=== PATIENT | male | born 1970 | race Caucasian/White ===

== ENCOUNTER 2020-01-29 03:06 | Emergency (ER) | payer SELFPAY ==
[2020-01-29 03:10] VITALS: BP 138/84; PULSE 66; RESP 18; TEMP 36.4; O2SAT 97; BMI 32.3
--- NOTE | 2020-01-29 03:16 | XRR_ITS ---
PROCEDURE INFORMATION: Exam: XR Lumbosacral Spine, 2 or 3 Views Exam date and time: 01/29/2020 3:51 AM Age: 49 years old Clinical indication: Patient HX: C/O chronic low back pain TECHNIQUE: Imaging protocol: XR of the lumbosacral spine, 3 views. Other technique: AP, lateral and spot lateral views of the lumbar spine are submitted. COMPARISON: No relevant prior studies available. FINDINGS: Vertebrae: Mild-moderate chronic appearing T12 and L1 vertebral body compression deformities. Mild leftward lumbar spinal curvature. T12-L1, L1-L2, L2-L3 and right L3-L4 vertebral body marginal osteophytes. Right L3-L4 degenerative disc narrowing. Sacrum/coccyx: Bilateral anterior inferior sacroiliac joint marginal sclerosis. Soft tissues: Unremarkable. XR/XR lumbar spine 2-3V* [id number] IMPRESSION: 1. Mild-moderate chronic appearing T12 and L1 vertebral body compression deformities. 2. Degenerative changes as above. 3. No acute lumbar spinal bony abnormality identified.
--- NOTE | 2020-01-29 03:16 | XRR_ITS ---
PROCEDURE INFORMATION: Exam: XR Thoracic Spine, 3 Views Exam date and time: 01/29/2020 3:51 AM Age: 49 years old Clinical indication: Pain in thoracic spine; Without myelpathy or radiculopathy; Patient HX: C/O chronic back pain TECHNIQUE: Imaging protocol: XR of the thoracic spine, 3 views. Other technique: AP and lateral views and a swimmer's lateral view of the thoracic spine are submitted. COMPARISON: No relevant prior studies available. FINDINGS: Vertebrae: Mild leftward thoracolumbar spinal curvature. Mild chronic appearing T12 vertebral body compression deformity. Right lateral vertebral body marginal osteophytes are noted at lower thoracic spinal levels. Soft tissues: Unremarkable. XR/XR thoracic spine 3V* [id number] IMPRESSION: 1. Mild chronic appearing T12 vertebral body compression deformity. 2. Degenerative changes as above. 3. No acute thoracic spinal bony abnormality identified.
--- NOTE | 2020-01-29 03:17 | W.ED.BACK ---
HPI - Back Pain/Injury General: Chief Complaint: Back Pain/Injury Stated Complaint: back pain Time Seen by Provider: 01/29/20 03:08 Source: patient Mode of arrival: ambulatory Limitations: no limitations History of Present Illness: HPI Narrative: 49-year-old male who states he has a history of back pain in the past after compression fractures from a fall roughly 15 to 20 years ago. States he started having pain again in his mid back on has had intermittent pain since then. He states he started having pain again tonight sharp in nature. He denies any bowel or bladder incontinence. Denies any pain shooting down his leg or numbness in his legs. He states his pain is currently a 7 out of 10. MD elicited complaint: back pain Pertinent past history: prior back pain Onset (ago): day(s) Timing: intermittent Severity: moderate Quality: sharp Location: lumbar spine and thoracic spine Radiation: none Exacerbating factors: movement Relieving factors: immobilization Associated symptoms: Deny abdominal pain, chills, dysuria, fever(s), nausea or vomiting Review of Systems Const: Denies: fever(s), chills, body aches or change in appetite Eyes: Denies: blurry vision or eye discomfort ENMT: Denies: throat pain or dental pain Card: Denies: chest pain Resp: Denies: dyspnea GI: Denies: abdominal pain, nausea, vomiting or diarrhea : Denies: dysuria Musc: Reports: back pain Skin/Breast: Denies: rash Neuro: Denies: headache(s) Psych: Denies: depression Kana/Lymph: Denies: easy bruising All/Imm: Denies: urticaria Physical Exam Const: COMMON NORMALS: no acute distress, patient oriented x3 and healthy appearing HENMT: COMMON NORMALS: normocephalic and atraumatic HEAD & SCALP: normocephalic and atraumatic Eye: COMMON NORMALS: Equal, round and reactive pupils present and EOMs intact bilaterally PUPIL: Yes Equal, round and reactive pupils present Neck/C-Spine: COMMON NORMALS: full ROM and supple Chest: COMMONS NORMALS: normal inspection of the chest and normal palpation of entire chest wall Resp: COMMON NORMALS: normal respiratory effort, No retractions, No use of accessory muscles and clear to auscultation bilaterally AUSCULTATION: clear to auscultation bilaterally Cardio: COMMON NORMALS: regular rate, regular rhythm and No murmurs present (Cardio) RATE: regular rate RHYTHM: regular rhythm GI: COMMON NORMALS: Normal to inspection, nondistended, normoactive bowel sounds present, Soft to palpation, non-tender and no masses PALPATION: Yes Soft to palpation Back/Pelvis: OTHER: Tenderness along mid spine paraspinally. No midline tenderness. No saddle anesthesia. No lower extremity weakness. Extremity: COMMON NORMALS: normal to inspection and full ROM Neuro: COMMON NORMALS: patient oriented x3, moves all extremities and no focal motor deficits Psych: COMMON NORMALS: mental status grossly normal, Normal thought process present and cooperative THOUGHT PROCESS: Normal thought process present Skin: COMMON NORMALS: no rashes or lesions noted and no wounds GENERAL SKIN EXAM: no rashes or lesions noted Course Vital Signs: Vital signs: Vital Signs Temperature 97.6 F 01/29/20 03:10 Pulse Rate 59 L 01/29/20 03:25 Respiratory Rate 18 01/29/20 03:25 Blood Pressure 138/84 01/29/20 03:25 Pulse Oximetry 98 01/29/20 03:25 MDM - Back Pain/Injury MDM Narrative: Medical decision making narrative: Patient presents with back pain is likely muscular in nature. X-ray shows no acute findings. Is no signs of epidural abscess or cord compression. We will place him on pain meds and he is to follow-up his primary care doctor in 3 to 5 days and return to the ER if worsening. Patient understands agrees to plan. Imaging Data^: X-ray lumbar spine: Attestation: I personally reviewed and interpreted this imaging study as follows: My impression: Compression fractures that are old is noted no acute injuries X-ray thoracic spine: My impression: No acute abnormality Discharge Plan Discharge Patient Disposition: Home Clinical Impression: Back pain Qualifiers: Back pain location: thoracic back pain Chronicity: chronic Back pain laterality: bilateral Qualified Code(s): M54.6 - Pain in thoracic spine Condition: Stable Prescriptions: New Robaxin-750 750 mg tablet 750 mg PO Q6H Qty: 30 RF: 0 Naprosyn 500 mg tablet 500 mg PO BID PRN (Reason: pain) Qty: 20 RF: 0 Discharge Orders: Discharge Order (Routine); Ordered 01/29/20 Ordered By: Martha Graves Discharge Diet: Advance as tolerated Discharge Activity: Resume usual activity Patient Instructions: Back Pain (ED) Coding Level of Care Code ED Product Control And Logistics Analyst for Joanieg Fwd Exam Comprehensive
[2020-01-29 03:22] VITALS: RESP 16; O2SAT 97
[2020-01-29] MEDS: morphine 4 mg/mL SDV 1 mL IM (03:22)
[2020-01-29 03:25] VITALS: BP 138/84; PULSE 59; RESP 18; O2SAT 98
[2020-01-29 04:24] VITALS: BP 126/80; PULSE 57; RESP 18; O2SAT 98
--- NOTE | 2020-01-29 15:03 | PC.SOCIAL ---
Called patient to inquire if he has a preference for primary care and was unable to reach or leave message on his primary number. Called wifes number and was unable to reach her as well. Left message on 's phone.
--- NOTE | 2020-01-29 15:52 | PC.SOCIAL ---
returned call and spoke with patient. He did not have a preference of pcp. Called [facility] and set up for SS option for 02/05/2020 arrival time of 9am to fill out paperwork. Pt will see Alin CHATTERJEE. Called and updated patient of all information and that he will need to bring 2019 taxes info if filed and if not proof of all income within the home. Updated patient that bottom scale fee for income is around $35 and goes up from there. He verbalized understanding and wrote down information. Faxed records to [facility] for follow up per their request.
--- NOTE | 2020-02-06 15:23 | DCPLANNER ---
Patient did not attend appointment scheduled for 02.05.20 at [facility].
== END 2020-01-29 04:24 | disposition home or self-care (01) ==
PROVIDERS: Emergency Provider Emergency Medicine
DX: G89.29 Other chronic pain (principal); M54.6 Pain in thoracic spine
CPT/HCPCS: 12345; 72072; 72100; 96372; 99281; 99283; J2270

== ENCOUNTER 2021-06-04 18:43 | Inpatient (IN) | payer SELFPAY ==
[2021-06-04 18:52] VITALS: BP 129/80; PULSE 94; RESP 16; TEMP 36.8; O2SAT 98
--- NOTE | 2021-06-04 19:13 | W.ED.PSYCHS ---
Documented by User: ISMAEL Bush 06/05/21 02:17 HPI - Psych General: Chief Complaint: Psychiatric Symptoms Stated Complaint: Psychiatry Symptons Time Seen by Provider: 06/04/21 18:59 History of Present Illness: HPI Narrative: Patient is a 51-year-old male comes to the ED with SI. Patient says he used meth yesterday and since then is having thoughts of suicide. Patient also admits that he is currently freaking out from his methamphetamine use. He says he recently started using meth. He would like to get help. Denies any past SI, plan for SI. Associated symptoms: Reports suicidal ideation Review of Systems Const: Denies: fever(s), chills or fatigue Eyes: Denies: change in vision or eye discomfort ENMT: Denies: throat pain, odynophagia, nasal discharge or nasal congestion Card: Denies: chest pain, palpitations, edema, swelling of feet/ankles, dyspnea on exertion or orthopnea Resp: Denies: dyspnea, productive cough or non-productive cough GI: Denies: abdominal pain, nausea, vomiting, diarrhea, constipation or hematochezia : Denies: flank pain, difficulty urinating, dysuria or hematuria Musc: Denies: neck pain, back pain or extremity swelling Skin/Breast: Denies: rash or new lesions Neuro: Denies: headache(s), numbness in extremities or weakness in extremities Psych: Reports: suicidal ideation and other (Methamphetamine use) [facility] ED PFSH: Medical History DOMENIC (generalized anxiety disorder) Social History Smoking and tobacco status: current every day smoker cigarettes Packs smoked per day: 1.5 Years cigarettes smoked: 25 Quit status (tobacco): not considering quitting Second hand smoke exposure: Yes Current gender identity: Male Physical Exam Const: COMMON NORMALS: no acute distress, patient oriented x3 and alert GENERAL APPEARANCE: cooperative and anxious HENMT: COMMON NORMALS: normocephalic HEAD & SCALP: normocephalic MOUTH: Normal oral and palatal mucosa present THROAT: posterior oropharynx normal and uvula midline Neck/C-Spine: COMMON NORMALS: supple GENERAL: Yes normal visual inspection Resp: COMMON NORMALS: normal respiratory effort, No retractions, No use of accessory muscles and clear to auscultation bilaterally AUSCULTATION: clear to auscultation bilaterally Cardio: COMMON NORMALS: regular rate, regular rhythm, S1 normal heart sound present, S2 normal heart sound present, No gallops present (Cardio), No clicks present (Cardio), No murmurs present (Cardio) and Peripheral pulses 2+ throughout RATE: regular rate RHYTHM: regular rhythm HEART SOUNDS: S1 normal heart sound present and S2 normal heart sound present PERIPHERAL PULSES: Peripheral pulses 2+ throughout GI: COMMON NORMALS: Normal to inspection, nondistended, normoactive bowel sounds present, Soft to palpation, non-tender and no masses PALPATION: Yes Soft to palpation : COMMON NORMALS: Yes no CVA tenderness BLADDER/KIDNEY EXAM: Yes no CVA tenderness Back/Pelvis: COMMON NORMALS: no CVA tenderness Extremity: COMMON NORMALS: normal to inspection Neuro: COMMON NORMALS: patient oriented x3 and moves all extremities SENSORIUM/ORIENTATION: Yes alert Psych: COMMON NORMALS: Normal thought process present and speech normal APPEARANCE: Yes grossly normal ATTITUDE: Yes calm ACTIVITY/MOTOR BEHAVIOR: Yes fidgeting, Yes hyperactivity and Yes Avoids eye contact (attititude/behavior) SPEECH: Yes normal speech MOOD & AFFECT: Yes anxious THOUGHT PROCESS: Normal thought process present ATTENTION/CONCENTRATION: Yes attention grossly intact and Yes concentration grossly intact MEMORY/COGNITION: Yes memory grossly intact and Yes cognition grossly intact INSIGHT: Fair insight present (Psych) JUDGEMENT: Fair judgement present (Psych) Skin: GENERAL SKIN EXAM: dry skin Course Consultations: Consultation #1: I contacted Dr. Parikh and told about patient case. He accepted admission of patient into the NPU Time: 21:42 Vital Signs: Vital signs: Vital Signs Temperature 97.8 F 06/08/21 06:41 Pulse Rate 74 06/08/21 06:41 Respiratory Rate 16 06/08/21 06:41 Blood Pressure 126/78 06/08/21 06:41 Pulse Oximetry 97 06/08/21 06:41 MDM - Psych MDM Narrative: Medical decision making narrative: Patient is a 51-year-old male who comes to the ED with SI. Patient also admits to recent methamphetamine use yesterday. All screening labs performed and patient urine drug screen was positive for amphetamines. Patient was given some Ativan while here in the ED to help with his anxiety. I contacted Dr. Parikh and told about patient case and he accepted admission into NPU. Dr. Higgins placed the admitting orders. Lab Data: Attestation: I reviewed the patient's lab results. Labs: Lab Results 06/04/21 06/04/21 06/04/21 19:20 19:20 21:35 WBC 10.3 10^3/uL H 10 ^3/uL (4.0-10.0) RBC 5.39 10^6/uL H 10 ^6/uL (4.1-5.3) Hgb 15.6 g/dL g/dL (11.7-16.6) Hct 45.0 % % (42.0-52.0) MCV 83.5 fl fl (80-94) MCH 28.9 pg pg (28.0-34.0) MCHC 34.7 g/dL g/dL (30.0-36.0) RDW 12.7 % % (12.1-15.1) Plt Count 300 10^3/cmm 10^3 /cmm (130-400) MPV 9.5 fL fL (7.4-10.4) Neut % (Auto) 58.1 % % Lymph % (Auto) 32.6 % % Grimes % (Auto) 5.8 % % Eos % (Auto) 2.7 % % Baso % (Auto) 0.6 % % Neut # (Auto) 5.98 10^3/uL 10^3 /uL (1.8-7.7) Lymph # (Auto) 3.4 10^3/uL 10^3/ uL (0.8-4.8) Grimes # (Auto) 0.6 10^3/uL 10^3/ uL (0.2-0.9) Eos # (Auto) 0.3 10^3/uL 10^3/ uL (0.0-0.8) Baso # (Auto) 0.1 10^3/uL 10^3/ uL (0.0-0.1) Nucleated RBC % (a uto) 0 % % Nucleated RBCs # 0.0 /100WBC /100W BC Sodium Potassium Chloride Carbon Dioxide Anion Gap BUN Creatinine GFR Calculation Glucose Calculated Osmolal ity Calcium Total Bilirubin AST ALT Alkaline Phosphata se Total Protein Albumin Globulin Urine Color Lynn (Yellow) Urine Appearance Clear (CLEAR) Urine pH 5 (5-7) Ur Specific Gravit y 1.025 (1.005-1.030) Urine Protein Trace (Negative) Urine Glucose (UA) Norm (Normal) Urine Ketones Negative (Negative) Urine Blood 3+ H (Negative) Urine Nitrate Negative (Negative) Urine Bilirubin Neg (Negative) Urine Urobilinogen 4 mg/dL H mg/dL (Negative) Ur Leukocyte Heidi ase Negative (Negative) Urine RBC 0-4 /hpf H /hpf (0-2) Urine WBC 0-4 /hpf H /hpf (0-5) Ur Squamous Epith Cells 5-10 /hpf H /hpf (0-5) Calcium Oxalate Cr ystal 5-10 /hpf H /hpf Amorphous Sediment Not Reportable Urine Bacteria 3+ /hpf H /hpf (NONE) Hyaline Casts 0-4 /lpf H /lpf Salicylates Urine Opiates Scre en Negative ng/mL ng /mL (Negative) Acetaminophen Ur Barbiturates Sc reen Negative ng/mL ng /mL (Negative) Ur Phencyclidine S crn Negative ng/mL ng /mL (Negative) Ur Amphetamines Sc reen Positive ng/mL H ng/mL (Negative) U Benzodiazepines Scrn Negative ng/mL ng /mL (Negative) Urine Cocaine Scre en Negative ng/mL ng /mL (Negative) U Marijuana (THC) Screen Negative ng/mL ng /mL (Negative) Ethyl Alcohol 06/04/21 21:35 WBC RBC Hgb Hct MCV MCH MCHC RDW Plt Count MPV Neut % (Auto) Lymph % (Auto) Grimes % (Auto) Eos % (Auto) Baso % (Auto) Neut # (Auto) Lymph # (Auto) Grimes # (Auto) Eos # (Auto) Baso # (Auto) Nucleated RBC % (a uto) Nucleated RBCs # Sodium 137 mmol/L mmol/L (136-145) Potassium 3.7 mmol/L mmol/L (3.5-5.1) Chloride 100 mmol/L mmol/L (98-107) Carbon Dioxide 25 mmol/L mmol/L (22-29) Anion Gap 15.7 (5-19) BUN 13 mg/dL mg/dL (6-20) Creatinine 0.7 mg/dL mg/dL (0.7-1.2) GFR Calculation 118.9 mL/min mL/m in (90-130) Glucose 103 mg/dL mg/dL (65-115) Calculated Osmolal ity 284 mOsm/kg L mOs m/kg (285-295) Calcium 8.7 mg/dL mg/dL (8.5-10.5) Total Bilirubin 0.6 mg/dL mg/dL (0.15-1.2) AST 20 U/L U/L (0-40) ALT 19 U/L U/L (0-41) Alkaline Phosphata se 64 IU/L IU/L (40-130) Total Protein 6.7 g/dL g/dL (6.6-8.7) Albumin 4.2 g/dL g/dL (3.5-5.2) Globulin 2.5 g/dL g/dL (1.3-4.6) Urine Color Urine Appearance Urine pH Ur Specific Gravit y Urine Protein Urine Glucose (UA) Urine Ketones Urine Blood Urine Nitrate Urine Bilirubin Urine Urobilinogen Ur Leukocyte Heidi ase Urine RBC Urine WBC Ur Squamous Epith Cells Calcium Oxalate Cr ystal Amorphous Sediment Urine Bacteria Hyaline Casts Salicylates < 0.3 mg/dL L mg/ dL (3-10) Urine Opiates Scre en Acetaminophen < 5.0 ug/mL L ug/ mL (10-30) Ur Barbiturates Sc reen Ur Phencyclidine S crn Ur Amphetamines Sc reen U Benzodiazepines Scrn Urine Cocaine Scre en U Marijuana (THC) Screen Ethyl Alcohol < 10 mg/dL mg/dL (0-10) Discharge Plan Discharge Admit Provider: Rogelio Parikh Clinical Impression: Suicidal ideation, Methamphetamine abuse Condition: Stable Discharge Orders: Discharge Order (Routine); Ordered 06/08/21 Ordered By: Rogelio Parikh Discharge Diet: Regular Discharge Activity: Resume usual activity Coding Level of Care Code ED Record Press Operator for Chg Fwd Exam Comprehensive Documented by User: Tony Higgins MD 06/10/21 23:58 HPI - Psych General: Chief Complaint: Psychiatric Symptoms Stated Complaint: Psychiatry Symptons Time Seen by Provider: 06/04/21 18:59 PFSH ED PFSH: Medical History DOMENIC (generalized anxiety disorder) Social History Smoking and tobacco status: current every day smoker cigarettes Packs smoked per day: 1.5 Years cigarettes smoked: 25 Quit status (tobacco): not considering quitting Second hand smoke exposure: Yes Current gender identity: Male Course Vital Signs: Vital signs: Vital Signs Temperature 97.8 F 06/08/21 06:41 Pulse Rate 74 06/08/21 06:41 Respiratory Rate 16 06/08/21 06:41 Blood Pressure 126/78 06/08/21 06:41 Pulse Oximetry 97 06/08/21 06:41 MDM - Psych MDM Narrative: Medical decision making narrative: I discussed this case with ISMAEL Bush. I reviewed documentation. Tony Higgins MD Emergency Medicine Lab Data: Labs: Lab Results 06/04/21 06/04/21 06/04/21 19:20 19:20 21:35 WBC 10.3 10^3/uL H 10 ^3/uL (4.0-10.0) RBC 5.39 10^6/uL H 10 ^6/uL (4.1-5.3) Hgb 15.6 g/dL g/dL (11.7-16.6) Hct 45.0 % % (42.0-52.0) MCV 83.5 fl fl (80-94) MCH 28.9 pg pg (28.0-34.0) MCHC 34.7 g/dL g/dL (30.0-36.0) RDW 12.7 % % (12.1-15.1) Plt Count 300 10^3/cmm 10^3 /cmm (130-400) MPV 9.5 fL fL (7.4-10.4) Neut % (Auto) 58.1 % % Lymph % (Auto) 32.6 % % Grimes % (Auto) 5.8 % % Eos % (Auto) 2.7 % % Baso % (Auto) 0.6 % % Neut # (Auto) 5.98 10^3/uL 10^3 /uL (1.8-7.7) Lymph # (Auto) 3.4 10^3/uL 10^3/ uL (0.8-4.8) Grimes # (Auto) 0.6 10^3/uL 10^3/ uL (0.2-0.9) Eos # (Auto) 0.3 10^3/uL 10^3/ uL (0.0-0.8) Baso # (Auto) 0.1 10^3/uL 10^3/ uL (0.0-0.1) Nucleated RBC % (a uto) 0 % % Nucleated RBCs # 0.0 /100WBC /100W BC Sodium Potassium Chloride Carbon Dioxide Anion Gap BUN Creatinine GFR Calculation Glucose Calculated Osmolal ity Calcium Total Bilirubin AST ALT Alkaline Phosphata se Total Protein Albumin Globulin Urine Color Lynn (Yellow) Urine Appearance Clear (CLEAR) Urine pH 5 (5-7) Ur Specific Gravit y 1.025 (1.005-1.030) Urine Protein Trace (Negative) Urine Glucose (UA) Norm (Normal) Urine Ketones Negative (Negative) Urine Blood 3+ H (Negative) Urine Nitrate Negative (Negative) Urine Bilirubin Neg (Negative) Urine Urobilinogen 4 mg/dL H mg/dL (Negative) Ur Leukocyte Heidi ase Negative (Negative) Urine RBC 0-4 /hpf H /hpf (0-2) Urine WBC 0-4 /hpf H /hpf (0-5) Ur Squamous Epith Cells 5-10 /hpf H /hpf (0-5) Calcium Oxalate Cr ystal 5-10 /hpf H /hpf Amorphous Sediment Not Reportable Urine Bacteria 3+ /hpf H /hpf (NONE) Hyaline Casts 0-4 /lpf H /lpf Salicylates Urine Opiates Scre en Negative ng/mL ng /mL (Negative) Acetaminophen Ur Barbiturates Sc reen Negative ng/mL ng /mL (Negative) Ur Phencyclidine S crn Negative ng/mL ng /mL (Negative) Ur Amphetamines Sc reen Positive ng/mL H ng/mL (Negative) U Benzodiazepines Scrn Negative ng/mL ng /mL (Negative) Urine Cocaine Scre en Negative ng/mL ng /mL (Negative) U Marijuana (THC) Screen Negative ng/mL ng /mL (Negative) Ethyl Alcohol 06/04/21 21:35 WBC RBC Hgb Hct MCV MCH MCHC RDW Plt Count MPV Neut % (Auto) Lymph % (Auto) Grimes % (Auto) Eos % (Auto) Baso % (Auto) Neut # (Auto) Lymph # (Auto) Grimes # (Auto) Eos # (Auto) Baso # (Auto) Nucleated RBC % (a uto) Nucleated RBCs # Sodium 137 mmol/L mmol/L (136-145) Potassium 3.7 mmol/L mmol/L (3.5-5.1) Chloride 100 mmol/L mmol/L (98-107) Carbon Dioxide 25 mmol/L mmol/L (22-29) Anion Gap 15.7 (5-19) BUN 13 mg/dL mg/dL (6-20) Creatinine 0.7 mg/dL mg/dL (0.7-1.2) GFR Calculation 118.9 mL/min mL/m in (90-130) Glucose 103 mg/dL mg/dL (65-115) Calculated Osmolal ity 284 mOsm/kg L mOs m/kg (285-295) Calcium 8.7 mg/dL mg/dL (8.5-10.5) Total Bilirubin 0.6 mg/dL mg/dL (0.15-1.2) AST 20 U/L U/L (0-40) ALT 19 U/L U/L (0-41) Alkaline Phosphata se 64 IU/L IU/L (40-130) Total Protein 6.7 g/dL g/dL (6.6-8.7) Albumin 4.2 g/dL g/dL (3.5-5.2) Globulin 2.5 g/dL g/dL (1.3-4.6) Urine Color Urine Appearance Urine pH Ur Specific Gravit y Urine Protein Urine Glucose (UA) Urine Ketones Urine Blood Urine Nitrate Urine Bilirubin Urine Urobilinogen Ur Leukocyte Heidi ase Urine RBC Urine WBC Ur Squamous Epith Cells Calcium Oxalate Cr ystal Amorphous Sediment Urine Bacteria Hyaline Casts Salicylates < 0.3 mg/dL L mg/ dL (3-10) Urine Opiates Scre en Acetaminophen < 5.0 ug/mL L ug/ mL (10-30) Ur Barbiturates Sc reen Ur Phencyclidine S crn Ur Amphetamines Sc reen U Benzodiazepines Scrn Urine Cocaine Scre en U Marijuana (THC) Screen Ethyl Alcohol < 10 mg/dL mg/dL (0-10) Discharge Plan Discharge Admit Provider: Rogelio Parikh Clinical Impression: Suicidal ideation, Methamphetamine abuse Condition: Stable Discharge Orders: Discharge Order (Routine); Ordered 06/08/21 Ordered By: Rogelio Parikh Discharge Diet: Regular Discharge Activity: Resume usual activity Coding Level of Care Code ED Record Press Operator for Chg Fwd Exam Comprehensive
[2021-06-04] MEDS: LORazepam 2 mg Tablet PO (20:28)
[2021-06-04 20:41] LABS: Add Urine Culture? No; Add Urine Microscopic? YES; Bacteria Urine 3+ /hpf; Bilirubin Urine Neg (Negative); Blood Urine 3+ (Negative); Glucose Urine UA Norm (Normal); Hyaline Casts Urine 0-4 /lpf; Ketones Urine Negative (Negative); Leukocyte Esterase Urine Negative (Negative); Nitrate Urine Negative (Negative); Protein Urine Trace (Negative); RBC Urine 0-4 /hpf (0-2); Specific Gravity, Urine 1.025 (1.005-1.030); Urine Appearance Clear (CLEAR); Urine Color Amber (Yellow); Urobilinogen Urine 4 mg/dL (Negative); WBC Urine 0-4 /hpf (0-5); pH Urine 5 (5-7)
[2021-06-04 20:42] LABS: Amphetamines Screen Urine Positive (Negative); Barbiturates Screen Urine Negative (Negative); Benzodiazepines Screen Urine Negative (Negative); Cocaine Screen Urine Negative (Negative); Opiate Screen Urine Negative (Negative); PCP Screen Urine Negative (Negative); THC Screen Urine Negative (Negative)
[2021-06-04 21:45] LABS: Basophils # 0.1 10^3/uL (0.0-0.1); Basophils % 0.6 %; Eosinophils # 0.3 10^3/uL (0.0-0.8); Eosinophils % 2.7 %; Hemoglobin 15.6 g/dL (11.7-16.6); Lymphocytes # 3.4 10^3/uL (0.8-4.8); Lymphocytes % 32.6 %; Mean Corpuscular HGB Conc 34.7 g/dL (30.0-36.0); Mean Corpuscular Hemoglobin 28.9 pg (28.0-34.0); Mean Corpuscular Volume 83.5 fl (80-94); Mean Platelet Volume 9.5 fL (7.4-10.4); Monocytes # 0.6 10^3/uL (0.2-0.9); Monocytes % 5.8 %; Neutrophils # 5.98 10^3/uL (1.8-7.7); Neutrophils % 58.1 %; Nucleated Red Blood Cells % 0 %; Platelet Count 300 10^3/cmm (130-400); Red Blood Count 5.39 10^6/uL (4.1-5.3); Red Cell Distribution Width 12.7 % (12.1-15.1); White Blood Count 10.3 10^3/uL (4.0-10.0)
[2021-06-04 22:00] VITALS: BP 120/82; PULSE 82; RESP 18; TEMP 36.7; O2SAT 100
[2021-06-04 22:02] LABS: Alanine Aminotransferase 19 U/L (0-41); Albumin Level 4.2 g/dL (3.5-5.2); Alkaline Phosphatase 64 IU/L (40-130); Anion Gap 15.7 (5-19); Aspartate Amino Transferase 20 U/L (0-40); Blood Urea Nitrogen 13 mg/dL (6-20); Calcium 8.7 mg/dL (8.5-10.5); Carbon Dioxide 25 mmol/L (22-29); Chloride 100 mmol/L (98-107); Globulin 2.5 g/dL (1.3-4.6); Glomerular Filtration Rate 118.9 mL/min (90-130); Glucose 103 mg/dL (65-115); Osmolality Calculated 284 mOsm/kg (285-295); Potassium 3.7 mmol/L (3.5-5.1); Sodium 137 mmol/L (136-145); Total Bilirubin 0.6 mg/dL (0.15-1.2); Total Protein 6.7 g/dL (6.6-8.7)
[2021-06-04 22:03] LABS: Acetaminophen < 5.0 ug/mL (10-30); Alcohol Level < 10 mg/dL (0-10); Salicylate < 0.3 mg/dL (3-10)
[2021-06-04 23:45] VITALS: BP 122/69; PULSE 80; RESP 17; TEMP 36.8; O2SAT 98
--- NOTE | 2021-06-04 23:56 | PC.ADMIT ---
Homeless Admission Note: The patient,Tushar Becerra,51 y/o, was given written information regarding hospital policies, unit procedures and contact persons. Patient's smoking status: current every day smoker. Vital Signs - 8 hr 06/04/21 18:52 06/04/21 22:00 Temperature 98.3 F 98.1 F Pulse Rate 94 82 Respiratory Rate 16 18 Blood Pressure 129/80 120/82 Pulse Oximetry 98 100 Patient is a 51-year-old male comes to the ED with SI. Patient says he used meth yesterday and since then is having thoughts of suicide. Patient also admits that he is currently freaking out from his methamphetamine use. He says he recently started using meth. He would like to get help. Denies any past SI, plan for SI. Associated symptoms: Reports suicidal ideation Upon arrival to NPU patient is slumped over on bench and unable to answer questions appropriately. Patient taken to his room and skin assessment performed with RODRIGUEZ Easton. Skin unremarkable. Patient assisted into cotton scrubs and placed in bed. Patient unable to keep his eyes open or answer questions for assessment. Will attempt again once patient is alert/oriented. Will continue to monitor and follow plan of care. Q 15 min safety checks per protocol.
[2021-06-05 06:00] VITALS: BP 122/69; PULSE 80; RESP 17; TEMP 36.8
[2021-06-05 06:46] VITALS: RESP 15
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
[2021-06-05 14:00] VITALS: BP 121/71; PULSE 84; RESP 17; TEMP 37.1; O2SAT 98
[2021-06-05 22:00] VITALS: BP 113/77; PULSE 67; RESP 16; TEMP 37.1; O2SAT 99
[2021-06-06] MEDS: ibuprofen 600 mg Tablet PO (03:58)
[2021-06-06 05:35] VITALS: BMI 26.6
[2021-06-06 06:00] VITALS: BP 120/78; PULSE 123; RESP 18; TEMP 36.8; O2SAT 99
[2021-06-06 14:00] VITALS: BP 117/75; PULSE 75; RESP 18; TEMP 36.3; O2SAT 98
--- NOTE | 2021-06-06 18:12 | W.PM.NPUPNS ---
Subjective NPU Subjective: Interval history: Patient presents today reporting he is doing a little bit better but still feels anxious and is managing his withdrawal okay. He reports that he is still depressed and has occasional thoughts of wishing he was but is mostly hopeful that treatment team will we will help find some sober living opportunities. He reports he still thinking about the naltrexone and BuSpar as far as medications. Mental Status Exam MSE Comments: This is a well-nourished well-developed white male with hospital scrubs on with limited grooming and eye contact appearing quite dirty. No abnormal movements except for psychomotor agitation. Mostly cooperative with exam in mild distress. Speech is slightly increased rate normal volume. Mood described as anxious affect congruent. Thought process organized. Thought content: Patient denied suicidal or homicidal ideation, there were no delusions reported or noted, denied visual hallucinations. Attention and concentration appeared intact and memory was most reliable but none were formally tested. He is alert and oriented x3. Insight and judgment are fair impulse control is impaired. Vitals/I&O/Wt Last Vital Signs Temp 97.4 F L 06/06/21 14:00 Pulse 77 06/06/21 20:04 Resp 16 06/06/21 20:04 BP 149/78 06/06/21 20:04 Pulse Ox 99 06/06/21 20:04 Weight last 48 hrs Weight 81.647 kg Data NPU : 06/04/21 21:35 06/04/21 21:35 A&P Additional A&P Information (1) Suicidal ideation: (2) Methamphetamine abuse: (3) DOMENIC (generalized anxiety disorder): Additional A&P Information This is a 51-year-old male with a history of anxiety and significant addiction who presents with active methamphetamine addiction anxiety and suicidal thinking presents open to getting help for his issues. 1. Continue current medication. We will reexplore BuSpar and naltrexone tomorrow. 2. Continue every 15 minute checks for safety. 3. Encourage individual, group and milieu therapies. 4. Encourage sober living treatment after discharge at the highest level of care to which he is willing to commit. Involuntary Hold Information 96 Hour Hold: 96 Hour Involuntary Admission: No Attestations NPU Medical Necessity Statement*: Inpatient hospitalization is medically necessary and the clinically appropriate intervention at this time. We will monitor medication to make changes as indicated. Likely length of stay 2-4 days. Coding Level of Care Code Acute Open Tenter Operator for Chg Fwd
[2021-06-06 20:04] VITALS: BP 149/78; PULSE 77; RESP 16; O2SAT 99
[2021-06-06] MEDS: trazodone 50 mg Tablet PO (20:32)
--- NOTE | 2021-06-06 20:35 | PC.NURSE ---
pt requested sleep med, Trazodone 50mg po given.
--- NOTE | 2021-06-06 22:00 | PC.NURSE ---
pt resting quietly with both eyes closed.
[2021-06-07 06:00] VITALS: BP 112/62; PULSE 92; RESP 17; O2SAT 98
--- NOTE | 2021-06-07 10:15 | PC.NURSE ---
Meds Patient declined 0900 nasal spray. States that he no longer needs this.
[2021-06-07 14:00] VITALS: BP 137/79; PULSE 92; RESP 16; TEMP 36.7; O2SAT 97
--- NOTE | 2021-06-07 17:39 | W.PM.NPUPNS ---
Subjective NPU Subjective: Interval history: Patient presents today reporting that he had an opportunity to work through the possibilities with the social workers and treatment team as to possible sober living opportunities. There were significant limitations but he turned in all of his paperwork for [facility]. There were a few other opportunities but he did not feel they were fixed because he was not ready to commit to 1 year. We discussed discharge in the morning. Mental Status Exam MSE Comments: This is a well-nourished well-developed white male with hospital scrubs on with improved grooming and eye contact. No abnormal movements. Cooperative with exam in no acute distress. Speech is more normal rate and volume. Mood described as better, affect congruent. Thought process organized. Thought content: Patient denied suicidal or homicidal ideation, there were no delusions reported or noted, denied visual hallucinations. Attention and concentration appeared intact and memory was most reliable but none were formally tested. He is alert and oriented x3. Insight and judgment are fair impulse control is limited. Vitals/I&O/Wt Last Vital Signs Temp 98.0 F 06/07/21 14:00 Pulse 92 06/07/21 14:00 Resp 18 06/07/21 21:39 BP 137/79 06/07/21 14:00 Pulse Ox 97 06/07/21 14:00 Data NPU : 06/04/21 21:35 06/04/21 21:35 A&P Additional A&P Information (1) Suicidal ideation: (2) Methamphetamine abuse: (3) DOMENIC (generalized anxiety disorder): Additional A&P Information This is a 51-year-old male with a history of anxiety and significant addiction who presents with active methamphetamine addiction anxiety and suicidal thinking presents open to getting help for his issues. 1. Continue current medication. 2. Continue every 15 minute checks for safety. 3. Encourage individual, group and milieu therapies. 4. Encourage sober living treatment after discharge at the highest level of care to which he is willing to commit. Involuntary Hold Information 96 Hour Hold: 96 Hour Involuntary Admission: No Attestations NPU Medical Necessity Statement*: Inpatient hospitalization is medically necessary and the clinically appropriate intervention at this time. We will monitor medication to make changes as indicated. Plan for discharge in the morning. Coding Level of Care Code Acute Toggle Press Folder And Feeder for Ana Melgar
[2021-06-07 21:39] VITALS: RESP 18
--- NOTE | 2021-06-08 05:57 | W.PM.NPUDCS ---
Diagnoses at Discharge Discharge Diagnosis (1) Suicidal ideation: Status: Resolved (2) Methamphetamine abuse: Status: Acute (3) DOMENIC (generalized anxiety disorder): Status: Acute Reason for Visit Reason for Visit: Psychiatry Symptons Brief History: History of Present Illness Tushar Becerar is a 51 year old male who presented to the emergency department with the following report: Chief Complaint: Psychiatric Symptoms Stated Complaint: Psychiatry Symptons Time Seen by Provider: 06/04/21 18:59 History of Present Illness: HPI Narrative: Patient is a 51-year-old male comes to the ED with SI. Patient says he used meth yesterday and since then is having thoughts of suicide. Patient also admits that he is currently freaking out from his methamphetamine use. He says he recently started using meth. He would like to get help. Denies any past SI, plan for SI. Associated symptoms: Reports suicidal ideation. He was admitted to the neuropsychiatric unit for definitive treatment of those issues. He presents today reporting that he does not figure out how to get his sobriety under control he is going to end up . He denies any psychiatric inpatient services in the past or any purely outpatient mental health services. He reports he has struggled with anxiety and has had some mental health treatment through drug and alcohol treatment agencies. Like [facility] outpatient. Endorses letter about accident today, denies alcohol marijuana or any other illicit drugs except he has struggled with methamphetamine reports that he may have had some sobriety in December that was fleeting. This is there is been a real struggle for him to maintain sobriety. He is only had at 1 outpatient rehab denies ever having a DUI. He denies any history of suicide attempts or self-injurious behavior but he reports that his family is in agreement that he really needs help and he knows that if he does not do something he is not have anybody in his corner. We discussed the risk benefits and alternatives of a trial of BuSpar and naltrexone and he understood and said he wanted to think about it as he appeared quite ambivalent about starting medications. Psychiatric history: As above. Substance abuse history: As above. Family history: He did not report any mental health, addiction or suicide attempts or completions on either side of family. Developmental history: He denies any issues at reports he learned to walk and talk and met his developmental time, he reports he may have a speech therapy endorse getting some special education classes. Psychosocial history: Reports his parents were together he was born and he has a younger sister and older brother than a product of that union. Neither of his parents had any other children other than those 3. He reports his childhood was shitty he reports they moved around a lot. But he denied emotional, physical or sexual abuse. He denied any other traumas in his life. He reports that he mated to the 10th grade but never got his GED. He reports being a heterosexual with his longest relationship being 15 years. He was 3 times and twice, he had 3 children, is never in the and he denied any catholic belief system. Reports his longest employment was about 10 years. And he is currently homeless. Legal history: Reports that he has had some weekend prison times in his life. Medical history: Hypertension. Please see ED note for any additional details. Hospital Course Hospital Course He slowly acclimated to the individual, group and milieu therapies provided. We had discussions about medication interventions, but ultimately he was ambivalent about medications. He was somewhat ambivalent about treatment in general once he started feeling a little better but he did fill out paperwork for some sober living options. He had modest improvement and was able to contract for safety outside the hospital prior to discharge. During the hospitalization, patient had routine laboratory studies which were within normal limits except for few outliers. Additionally there was a general medical evaluation which was also within normal limits and revealed no new acute processes. Discharge Summary: At the time of discharge, he denied psychosis or lethality. Mood and anxiety were well managed. Patient endorsed a plan to avoid all drugs of abuse and follow-up with the aftercare recommendations of the treatment team. Patient was evaluated and deemed to be absent credible lethality, and had achieved the maximum benefit from an inpatient hospitalization, so was discharged. Involuntary Hold Information 96 Hour Hold: 96 Hour Involuntary Admission: No Mental Status Exam MSE Comments: This is a well-nourished well-developed white male with hospital scrubs on with improved grooming and eye contact. No abnormal movements. Cooperative with exam in no acute distress. Speech is more normal rate and volume. Mood described as better, affect congruent. Thought process organized. Thought content: Patient denied suicidal or homicidal ideation, there were no delusions reported or noted, denied visual hallucinations. Attention and concentration appeared intact and memory was most reliable but none were formally tested. He is alert and oriented x3. Insight and judgment are fair impulse control is limited. Discharge Data Vitals: Last Vital Signs Temp 98.0 F 06/07/21 14:00 Pulse 92 06/07/21 14:00 Resp 18 06/07/21 21:39 BP 137/79 06/07/21 14:00 Pulse Ox 97 06/07/21 14:00 Discharge Plan Discharge Patient Disposition: Home Condition: Stable Prescriptions: Continued No Known Home Medications RF: 0 Discharge Orders: Discharge Order (Routine); Ordered 06/08/21 Ordered By: Rogelio Parikh Discharge Diet: Regular Discharge Activity: Resume usual activity Patient Instructions: Generalized Anxiety Disorder, Methamphetamine Abuse (GEN), Suicide Prevention (GEN), Opioid Safety Discharge Attestations NPU Time Spent in Discharge Care*: less than 30 min Specific Discharge Activities: Specific discharge activities: educating patient, discussing with binder caser/social workers/dc planners, documenting/other paperwork and evaluating patient/reviewing data Coding Level of Care Code Acute Chg FW DC note Diagnoses Suicidal ideation R45.851 Methamphetamine abuse F15.10 DOMENIC (generalized anxiety disorder) F41.1
[2021-06-08 06:00] VITALS: RESP 16
[2021-06-08 06:41] VITALS: BP 126/78; PULSE 74; RESP 16; TEMP 36.6; O2SAT 97
== END 2021-06-08 10:20 | disposition home or self-care (01) | DRG 897 ==
LOC: ER 19:00 → NP 23:05
PROVIDERS: Admitting Provider Psychiatry & Neurology Psychiatry; Emergency Provider Physician Assistant; Visit Provider Psychiatry & Neurology Psychiatry
DX: F15.10 Other stimulant abuse, uncomplicated (principal); R45.851 Suicidal ideations; F41.1 Generalized anxiety disorder; F17.210 Nicotine dependence, cigarettes, uncomplicated; Z59.00 Homelessness unspecified; I10 Essential (primary) hypertension
CPT/HCPCS: 36415; 80053; 80306; 80307; 81001; 85025; 97165; 99285

== ENCOUNTER 2025-02-24 21:25 | Emergency (ER) | payer MEDICAID, SELFPAY ==
--- OUTSIDE RECORDS SUMMARY | 2011-09-28 19:00 | XMS_ITS | Continuity of Care Document ---
Author Organization [facility] Address [address] [place] [address] Phone Care Team Providers Care Rug Repairer Name Role Phone Art Miranda MD, MD Unavailable Unavailable Medications Medication Instructions Dosage Effective Dates (start - stop) Status Comments [place] 5 mg-325 mg Tab take 1 - 2 by Oral route q 4-6 hr prn 1-2 - Active Procedures Procedure Date Rating Letter Office/outpatient visit,est, mod 2011 Supplemental Report Postop followup visit Supplemental Report Postop followup visit Supplemental Report Postop followup visit Supplemental Report Postop followup visit Supplemental Report Partial removal of shoulder bone 2010 Work/medical disability examination MARY Advance Directives Directive Yes / No Effective Date File Name No Information Encounters Encounter Description Practice Location Reason(s) For Visit Diagnoses Date Provider Providers Copied on Encounter Rating Letter [facility], [address] [place] [address], [id number], tel:[phone] [facility] No Information 2 Ruben Cordova. [address] [place] [address], [place] [address], [place], [place], [id number] , [place]. tel: [phone] Office/outpat ient visit,est, mod [facility], [address] [place] [address], [id number], tel:[phone] [facility] JOINT PAIN-SHLDERJO INT DIS NEC-SHLDER 2 Ruben Cordova. [address], [place] [address], [place], [place], [id number] , [place]. tel:[phone] [facility], [address], [id number], [place] tel:[phone] [facility] JOINT PAIN-SHLDER 2 Ruben Cordova. [address], [place] [address], [place], [place], [id number] , [place]. tel: [phone] [facility], [address] [place] [address], [place], [place], [id number], [place] tel:[phone] [facility] JOINT PAIN-SHLDERSP RAIN SHOULDER/ARM NOSROTATOR CUFF DIS NEC 2 Ruben Cordova. [address] [place] [address], [place], [place], [id number] , [place]. tel: [phone] [facility], [address] [place] [address], [place], [place], [id number], [place] tel:[phone] [facility] No Information 2 Ruben Cordova. [address] [address], [place], [place], [id number] , [place]. tel: [phone] [facility], [address] [place] [address], [id number], [place] tel:[phone] [facility] JOINT PAIN-L/LEGJOI NT SYMPTOM NEC-SHLDER Jun- 1 Ruben Cordova. [address] [place] [address], [place], [place], [id number] , [place]. tel: [phone] [facility], [address], [id number], [place] tel:[phone] [facility] JOINT PAIN-SHLDERRO TATOR CUFF DIS NEC 1 Ruben Cordova. [address] [facility], [address], [place], [place], [id number] , [place]. tel: [phone] [facility], [address] [facility] [address], [place], [place], [id number], [place] [phone] [facility] [place] ARTIC CARTIL DIS-SHLDER 1 Ruben Cordova. [address], [address], [place], [place], [id number] , [place]. tel: [phone] Work/medical disability examination MARY [facility], [address] [facility] [address], [place], [place], [id number], [place] [phone] [facility] BICEPS TENDON [facility] DIS NEC 1 Ruben Cordova. [address], [address], [place], [place], [id number] , [place]. tel: [phone] Family History Family Member Type Diagnosis Age At Onset No Information Payers Payer name Insurance type Covered republican ID Cherie glynn(s) [employer] [id number] Social History Type Description Quantity Date Captured Comments Sex Male Smoking Status No Information Chief Complaint And Reason For Visit No Information Reason For Referral Reason For Referral No Information History Of Present Illness Encounter Date Complaint History Of Prese nt Illness No Information Functional Status Date Functional Assessmen t No Information Instructions Date Instruction Additional Infor mation No Information Assessments Type Assessment Date No Information Patient Care Teams Name Effective Dates (start - stop) Status Members No Information
[2025-02-24 21:25] VITALS: BP 144/84; PULSE 74; RESP 18; TEMP 36.6; O2SAT 95; BMI 31.4
--- NOTE | 2025-02-24 21:32 | ED.C_ITS ---
HPI - Psych General: Chief Complaint: Psychiatric Symptoms Stated Complaint: depression and stress Time Seen by Provider: 02/24/25 21:28 History of Present Illness: 54-year-old man with a history of depres yolande who presents the emergency room with depression and stress. He says he has been feeling worthless and he is tired of feeling that way. He was not sure what to do. We discussed at length options. He continually denies that he has suicidal thoughts and he agrees that he will go to the crisis unit tomorrow but if he develops suicidal thoughts he will return to the emergency room. Related Data Home Medications ?Medication ?Instructions ?Recorded ?Confirmed No Known Home Medications 06/04/21 1209/20 Allergies Allergy/AdvReac Type Severity Reaction Status Date / Time No Known Allergies Allergy Verified 02/14/20 13:13 Review of Systems Narrative: Constitutional symptoms: Negative except as documented in HPI. Skin symptoms: Negative except as documented in HPI. Eye symptoms: Negative except as documented in HPI. ENMT symptoms: Negative except as documented in HPI. Respiratory symptoms: Negative except as documented in HPI. Cardiovascular symptoms: Negative except as documented in HPI. Gastrointestinal symptoms: Negative except as documented in HPI. Genitourinary symptoms: Negative except as documented in HPI. Musculoskeletal symptoms: Negative except as documented in HPI. Neurologic symptoms: Negative except as documented in HPI. Psychiatric symptoms: Negative except as documented in HPI. Endocrine symptoms: Negative except as documented in HPI. [facility] ED PFSH: Medical History (Updated 02/24/25 @ 21:33 by Candis Gonzalez MD) DOMENIC (generalized anxiety disorder) Social History Smoking and tobacco/nicotine status: current every day tobacco/nicotine user cigarettes Packs smoked per day: 1.5 Years cigarettes smoked: 25 Quit status (tobacco/nicotine): not considering quitting Second hand smoke exposure: Yes Current gender identity: Male Physical Exam Narrative: EXAM NARRATIVE: General: Alert, no acute distress. Skin: Warm, dry. Head: Normocephalic, atraumatic. Neck: Supple, trachea midline. Eye: Extraocular movements are intact. Ears, nose, mouth and throat: mucosa moist. Cardiovascular: Regular, Normal peripheral perfusion. Respiratory: Lungs are clear to auscultation, respirations are non-labored, breath sounds are equal, Symmetrical chest wall expansion. Gastrointestinal: Soft, Nontender, Non distended Musculoskeletal: Normal ROM, no deformity. Neurological: Alert and oriented, No focal neurological deficit observed. Psychiatric: Cooperative, appropriate mood & affect. Course Vital Signs: Vital signs: Vital Signs Temperature 97.9 F 02/24/25 21:25 Pulse Rate 74 02/24/25 21:25 Respiratory Rate 18 02/24/25 21:25 Blood Pressure 144/84 02/24/25 21:25 Pulse Oximetry 95 02/24/25 21:25 Oxygen Delivery Me thod Room Air 02/24/25 21:25 MDM - Psych Medical Decision Making Medical decision making: Differential diagnosis including but not limited to and based on the above HPI, review of systems and physical exam: Patient currently denies any suicidal or homicidal thoughts. He is not actively psychotic. He poses no danger to himself or others. He agrees to go to the crisis center tomorrow for his worsening depression symptoms. Assessment and plan: Depression - Discharged home - Discussed plan with patient. Answered any questions. - Evaluation and treatment of this problem were appropriate in the emergency setting. No radiology studies performed this visit Discharge Plan Discharge Patient Disposition: Home Clinical Impression: Depression Condition: Stable Prescriptions: No Action No Known Home Medications Discharge Orders: Discharge ED (Routine); Ordered 02/24/25 Ordered By: Candis Gonzalez Referrals: Claudette Quintero FNP [Primary Care Provider, Family Practice] Discharge Diet: Usual diet Discharge Activity: Increase activity as tolerated Patient Instructions: Opioid Safety, Pain Management, Patient Portal & Abdulaziz Instructions Activity Restrictions/Additional Instructions: Please follow-up with the [facility] health crisis center tomorrow or the next day. Phone number is [phone]. There is a 24-hour crisis hotline with the number of [phone]. Hours of operation are 8 AM to 6 PM. Thank you for choosing [facility] for your healthcare needs today. Please realize this is an emergency room and that we are providing you with a medical screening exam and this may not be complete and all inclusive of all the testing and or work up that you may need to determine your ailment or severity of your illness. You have been screened and evaluated and felt safe for discharge. Health conditions do change or evolve sometimes and as such it is important that you follow up with your Primary Doctor to be re checked, 3-5 days is a general good time frame for follow up. You are always welcome to return to the ED for re assessment if your symptoms are worsening or you have new concerns Print Language: Kazakh Coding Level of Care Code ED Two Needle Machine Operator for Ana Melgar
--- OUTSIDE RECORDS SUMMARY | 2025-02-24 21:42 | XMS_ITS | Clinical Summary ---
Author Organization [facility] Address [address] [facility] [address] Johnson: Epic Prelude ADT ZHEN MERCADO [address] Care Team Providers Care Parts Assembler Name Role Phone Huber Chaves MD Primary Care Provider [phone] Allergies Active Allergy Reactions Criticality Noted Date Comments Duloxetine Hcl Swelling Low 01/16/2024 Mirtazapine Swelling Low 01/16/2024 Medications gabapentin (NEURONTIN) 600 mg tabletIndication s:Lumbosacral spondylosis with radiculopathy,Sp inal stenosis of lumbar region with neurogenic claudication Take 1 Tablet (600 mg) by mouth 3 times daily. Resuming prior Rx 90 Tablet 5 08/15/19 25 Active Ventolin HFA 90 mcg/actuation inhalerIndicatio ns:Acute bronchitis, unspecified organism INHALE 2 PUFFS BY MOUTH EVERY 6 HOURS NEEDED FOR SHORTNESS OF BREATH 18 Gram 2 09/14/19 25 Active ARIPiprazole (Abilify) 5 mg tablet Take 1 Tablet (5 mg) by mouth daily. Replaces seroquel 30 Tablet 5 01/14/20 25 Active loratadine (CLARITIN) 10 mg tablet Take 1 Tablet (10 mg) by mouth daily. 30 Tablet 1 01/15/20 25 Active fluticasone propionate (FLONASE) 50 mcg/spray [place], Suspension nasal inhaler Administer 2 Sprays in each nostril daily. 16 Gram 01/16/20 25 Active ibuprofen (MOTRIN) 800 mg tabletIndication s:Lumbar radiculopathy,SI (sacroiliac) joint inflammation TAKE 1 TABLET BY MOUTH EVERY 8 HOURS NEEDED FOR MILD PAIN 180 Tablet 02/05/20 25 Active ibuprofen (MOTRIN) 800 mg tabletIndication s:Lumbar radiculopathy,SI (sacroiliac) joint inflammation TAKE 1 TABLET BY MOUTH EVERY 8 HOURS NEEDED FOR MILD PAIN 180 Tablet 11/28/19 025 Discontinued cephALEXin (KEFLEX) 500 mg capsule Take 1 Capsule (500 mg) by mouth 4 times daily for 14 days. 56 Capsule 02/01/20 025 Active Problems Problem Noted Date Diagnosed Date Nasal septal deviation 02/06/2025 Closed fracture of right zygomatic arch 02/07/20 Chronic pansinusitis 02/06/2025 Lumbosacral spondylosis with radiculopathy 08/15 Spinal stenosis of lumbar re gion with neurogenic claudication 07/15/2024 Osteoarthritis of spine with radiculopathy, lumb ar region 07/15/2024 Auditory hallucinations 07/15/2024 Tobacco use 09/15/2015 Resolved Problems Problem Noted Date Diagnosed Date Resolved Date Muscle strain of gluteal reg ion, right, initial encounter 05/02/2023 07/15/2024 Muscle spasm of back 05/02/2023 025 Acute pain of right shoulder 09/14/2022 07/15/2024 Encounters Date Type Department Care Team Description 02/24/[address] [address] Huber Chaves MD Patient Communication 02/13/2025 8:35 AM CDT Procedure visit [address] [address] Numbness and tingling in both hands; Peripheral edema; Generalized edema; Auditory hallucinations; Hyperglycemia; Peripheral polyneuropathy; Allergic rhinitis, unspecified seasonality, unspecified trigger 02/06/2025 11:15 AM CDT Office Visit [facility] [address] [place] [address] Pelon Coley MD Closed fracture of right zygomatic arch, initial encounter ([facility]) (Primary Dx); Chronic pansinusitis; Nasal septal deviation 02/04/2025 Refill [facility] [address] [place] [address] [place] [address] [place] [address] Sydney Khoury FNP Lumbar radiculopathy; SI (sacroiliac) joint inflammation 01/31/2025 1:43 PM CDT - 01/31/2025 3:28 PM CDT Emergency [address] [address] Closed extensive facial fractures, initial encounter ([facility]) (Primary Dx) Discharge Disposition: Home or Self Care 01/31/2025 Travel 01/21/2025 External Device Data [facility] ABSTRACTION Provider, Abstract 01/21/2025 External Device Data [place]STRACTION Provider, Abstract 01/21/2025 External Device Data [place]STRACTION Provider, Abstract 01/14/2025 8:49 PM CDT - 01/14/2025 9:30 PM CDT [address] [address] Misha Marin MD Allergic rhinitis, unspecified seasonality, unspecified trigger (Primary Dx) Discharge Disposition: Home or Self Care 01/14/2025 Travel 01/14/[address] [address] Huber Chaves MD Medication Assistance 01/13/2025 11:40 AM CDT Office Visit [address] [address] Huber Chaves MD Auditory hallucinations (Primary Dx); Numbness and tingling in both hands; Hyperglycemia; Peripheral polyneuropathy; Peripheral edema; Allergic rhinitis, unspecified seasonality, unspecified trigger; Generalized edema 12/31/2024 External Device Data [place] ABSTRACTION Provider, Abstract 12/24/2024 External Device Data [place] ABSTRACTION Provider, Abstract 12/24/2024 External Device Data [place] ABSTRACTION Provider, Abstract 12/24/2024 External Device Data [place] ABSTRACTION Provider, Abstract 11/27/[address] [address] Radha, Verna Emma, HEAD OF TRANSPORT LOGISTICS Skin abrasion [facility] [address] [address] Peng Sydney, HEAD OF TRANSPORT LOGISTICS Lumbar radiculopathy; SI (sacroiliac) joint inflammation 11/26/2024 External Device Data [place] ABSTRACTION Provider, Abstract 11/26/2024 External Device Data [place] ABSTRACTION Provider, Abstract 11/26/2024 External Device Data [place] ABSTRACTION Provider, Abstract 11/24/2024 8:46 PM CDT - 11/24/2024 9:15 PM CDT Emergency [facility] Emergency Medicine [address] [phone] Misha Marin MD Allergic rhinitis, unspecified seasonality, unspecified trigger (Primary Dx) Discharge Disposition: Home or Self Care 11/24/2024 8:45 AM CDT - 11/24/2024 11:59 PM CDT Hospital Encounter [facility] [place] [address] [phone] Ambulance, [facility] Discharge Disposition: [facility] 11/24/2024 Travel from Last 3 Months Immunizations Immunization Administration Dates Next Due (SPIKEVAX) (12 YRS UP PRIMAR Y SERIES) COVID-19 VACCINE - MRNA-1273(PF) 100 MCG/0.5 ML IM SUSP 02/19/2021,01/18/2021 Influenza Seasonal Unspecified Formulation IM Family History Medical History Relation Name Comments No Known Problems Brother Healthy Daughter 1 Flavia Healthy Daughter 2 Lisset CP Daughter 3 Avey Diabetes Daughter 3 Avey No Known Problems Father Diabetes Mother No Known Problems Sister Healthy Son 1 Drake Healthy Son 2 Bryce Healthy Son 3 Sharath Relation Name Status Comments Brother Alive Daughter 1 Flavia Alive Daughter 2 Lsiset Alive Daughter 3 Avey Alive Father Alive Maternal Grandfather Maternal Grandmother Mother Alive Paternal Grandfather Paternal Grandmother Sister Alive Son 1 Drake Alive Son 2 Bryce Alive Son 3 Sharath Alive Social History Tobacco Use Types Packs/Day Years Used Date Smoking Tobacco: Every Day Cigarettes 0.5 41.6 Started: 07/19/1983 Smokeless Tobacco: Former Chew Tobacco Cessation:Ready to Q uit: Not Asked; Counseling Given: Yes Alcohol Use Standard Drinks/Week Comments Not Currently 0.8 (1 standard drink = 0.6 oz p ure alcohol) Feeling Safe Answer Date Recorded Are you in a relationship wi th someone who hurts you emotionally and/or physically? 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 Gender Identity Not on file Sexual Orientation Not on file Last Filed Vital Signs Vital Sign Reading Time Taken Comments Blood Pressure 130/80 02/06/2025 10:50 AM CDT Pulse 49 01/31/2025 3:15 PM CDT Temperature 36.5 C (97.7 F) 01/31/2025 1:46 PM CDT Respiratory Rate 18 01/31/2025 3:15 PM CDT Oxygen Saturation 99% 01/31/2025 3:15 PM CDT Inhaled Oxygen Concentration - - Weight 90.5 kg (199 lb 9.6 oz) 02/06/2025 10:50 AM CDT Height 174 cm (5' 8.5 ) 02/06/2025 10:50 AM CDT Body Mass Index 29.91 02/06/2025 10:50 AM CDT Plan of Treatment Health Maintenance Due Date Last Done Comments DTAP/TDAP/TD VACCINES (1 - Tdap) 1989 HEPATITIS B VACCINES (1 of 3 - 19+ 3-dose series) 1989 Preventative Visit-Managed Medicaid 1989 COLORECTAL SCREENING 2015 Colorectal Cancer Screening 2015 FIT-DNA Q 3 years 2015 FIT/FOBT Q 1 year 2015 Flex Sig/CT Colonography Q 5 years 2015 Lung Cancer Screening 2020 ZOSTER VACCINE (1 of 2) 2020 COVID-19 Vaccine (3 - season) 2024, 01/18/2021 INFLUENZA VACCINE (#1) 2025 , 06/21/2023, 03/28/2015 Pre-Diabetes and Diabetes Screening 02/14/202802/13 Procedures Procedure Name Priority Date/Time Associated Diagnosis Comments BRAIN NATRIURETIC PEPTIDE, BNP OR PROBNP Routine 02/13/2025 8:45 AM CDT Numbness and tingling in both hands Peripheral edema Generalized edema VITAMIN B12 LEVEL Routine 02/13/2025 8:4 5 AM CDT Auditory hallucinations Numbness and tingling in both hands Hyperglycemia Peripheral polyneuropathy Peripheral edema Allergic rhinitis, unspecified seasonality, unspecified trigger Generalized edema TSH Routine 02/13/2025 8:45 AM CDT Auditory hallucinations Numbness and tingling in both hands Hyperglycemia Peripheral polyneuropathy Peripheral edema Allergic rhinitis, unspecified seasonality, unspecified trigger Generalized edema HEMOGLOBIN A1C Routine 02/13/2025 8:45 AM CDT Hyperglycemia COMPREHENSIVE METABOLIC PANEL Routine 02/13/2025 8:45 AM CDT Numbness and tingling in both hands Hyperglycemia Peripheral polyneuropathy Peripheral edema Generalized edema CBC WITH DIFFERENTIAL Routine 02/13/2025 8:45 AM CDT Numbness and tingling in both hands Hyperglycemia Peripheral polyneuropathy Peripheral edema Generalized edema C-REACTIVE PROTEIN Routine 02/13/2025 8: 45 AM CDT Auditory hallucinations Numbness and tingling in both hands Hyperglycemia Peripheral polyneuropathy Peripheral edema Allergic rhinitis, unspecified seasonality, unspecified trigger Generalized edema PROTEIN ELECTROPHORESIS W/REFLEX,SERUM Routine 02/13/2025 8:45 AM CDT Numbness and tingling in both hands Peripheral edema Generalized edema CT SINUS FACIAL BONES WO CONTRAST Stat 01/31/2025 2:52 PM CDT from Last 3 Months Results * CBC WITH DIFFERENTIAL (02/13/2025 8:45 AM CDT) WBC 9.1 3.8 - 10.8 Thousand/u L [facility] RBC 5.11 4.20 - 5.80 Million/uL [facility] HEMOGLOBIN 15.3 13.2 - 17.1 g/dL [facility] HEMATOCRIT 46.4 38.5 - 50.0 % [facility] MCV 90.8 80.0 - 100.0 fL [facility] MCH 29.9 27.0 - 33.0 pg [facility] MCHC 33.0 32.0 - 36.0 g/dL [facility] Comment: For adults, a slight decrease in the calculated MCHC value (in the range of 30 to 32 g/dL) is most likely not clinically significant; however, it should be interpreted with caution in correlation with other red cell parameters and the patient's clinical condition. RDW 14.6 11.0 - 15.0 % [facility] PLATELETS 215 140 - 400 Thousand/u L [facility] MPV 11.2 7.5 - 12.5 fL [facility] NEUTROPHIL ABSOLUTE 5,697 1,500 - 7,800 cells/uL [facility] LYMPHOCYTE ABSOLUTE 2,439 850 - 3,900 cells/uL [facility] MONOCYTE ABSOLUTE 528 200 - 950 cells/uL [facility] EOSINOPHIL ABSOLUTE 364 15 - 500 cells/uL [facility] BASOPHILS ABSOLUTE 73 0 - 200 cells/uL [facility] NEUTROPHIL 62.6 % [facility] LYMPHOCYTES 26.8 % [facility] MONOCYTE 5.8 % [facility] EOSINOPHILS 4.0 % [facility] BASOPHILS 0.8 % [facility] Comment: Test Performed at: [place] [address] [address] Moreno Ludwig MD Blood 02/13/2025 8:45 AM CDT 02/14/2025 2:57 AM CDT us Huber Chaves MD HEMATOLOGY ORDERABLES Fin al Result [facility] [phone] [facility] [address] [place] [address] * C-REACTIVE PROTEIN (02/13/2025 8:45 AM CDT) [facility] CRP <3.0 <8.0 mg/L [facility] Comment: Test Performed at: [facility] [place] [address] Moreno Ludwig MD Blood 02/13/2025 8:45 AM CDT 02/14/2025 2:57 AM CDT Huber Chaves MD CHEMISTRY ORDERABLES Lori l Result Performing Organization Address [facility]/ZIP Co de Phone Number [facility] [phone] [facility] [address] * TSH (02/13/2025 8:45 AM CDT) [facility] TSH 0.45 0.40 - 4.50 mIU/L [facility] Comment: Test Performed at: [facility] [place] [address] Moreno Ludwig MD Blood 02/13/2025 8:45 AM CDT 02/14/2025 2:57 AM CDT Huber Chaves MD CHEMISTRY ORDERABLES Lori l Result Performing Organization Address [facility]/ZIP Co de Phone Number [facility] [phone] [facility] [address] * PROTEIN ELECTROPHORESIS W/REFLEX,SERUM (02/13/2025 8:45 AM CDT) [facility] TOTAL PROTEIN 6.6 6.1 - 8.1 g/dL [facility] ALBUMIN SPE 4.2 3.8 - 4.8 g/dL [facility] ALPHA 1 GLOBULIN SPE 0.3 0.2 - 0.3 g/dL [facility] ALPHA 2 GLOBULIN SPE 0.7 0.5 - 0.9 g/dL [facility] Beta 1 Globulin 0.4 0.4 - 0.6 g/dL [facility] Beta 2 Globulin 0.3 0.2 - 0.5 g/dL [facility] GAMMA GLOBULIN 0.8 0.8 - 1.7 g/dL [facility] SPE INTERP [facility] Comment: No restricted band (M-spike) seen. Test Performed at: [facility] [address] Moreno Ludwig MD Blood 02/13/2025 8:45 AM CDT 02/14/2025 2:57 AM CDT Huber Chaves MD CHEMISTRY ORDERABLES Lori l Result Performing Organization Address [facility]/ZIP Co de Phone Number [facility] [phone] [facility] [address] * BRAIN NATRIURETIC PEPTIDE, BNP OR PROBNP (02/13/2025 8:45 AM CDT) PROBNP, N TERMINAL TNP pg/mL [facility] Comment: TEST NOT PERFORMED. Transport device is not acceptable for test requested. Test Performed at: [facility] [address] Moreno Ludwig MD Blood 02/13/2025 8:45 AM CDT 02/14/2025 2:57 AM CDT Huber Chaves MD CHEMISTRY ORDERABLES Lori l Result [facility] [phone] [facility] [address] * HEMOGLOBIN A1C (02/13/2025 8:45 AM CDT) HEMOGLOBIN A1C 5.6 <5.7 % [facility] Comment: For the purpose of screening for the presence of diabetes: <5.7% Consistent with the absence of diabetes 5.7-6.4% Consistent with increased risk for diabetes (prediabetes) > or =6.5% Consistent with diabetes This assay result is consistent with a decreased risk of diabetes. Currently, no consensus exists regarding use of hemoglobin A1c for diagnosis of diabetes in children. According to [place] Diabetes Association (ADA) guidelines, hemoglobin A1c <7.0% represents optimal control in non- diabetic patients. Different metrics may apply to specific patient populations. Standards of Medical Care in Diabetes(ADA). ESTIMATED AVERAGE GLUCOSE (MG/DL) 114 mg/dL [facility] ESTIMATED AVERAGE GLUCOSE (MMOL/L) 6.3 mmol/L [facility] Comment: Test Performed at: [facility] [address] [place] [phone] Moreno Ludwig MD Blood 02/13/2025 8:45 AM CDT 02/14/2025 2:57 AM CDT Huber Chaves MD CHEMISTRY ORDERABLES [facility] l Result [facility] [phone] [facility] [address] * VITAMIN B12 LEVEL (02/13/2025 8:45 AM CDT) Pathologist [facility] VITAMIN B12 209 200 - 1100 pg/mL [facility] Comment: Please Note: Although the reference range for vitamin B12 is 200-1100 pg/mL, it has been reported that between 5 and 10% of patients with values between 200 and 400 pg/mL may experience neuropsychiatric and hematologic abnormalities due to occult B12 deficiency; less than 1% of patients with values above 400 pg/mL will have symptoms. Test Performed at: [facility] [address] [place] [phone] Moreno Ludwig MD Blood 02/13/2025 8:45 AM CDT 02/14/2025 2:57 AM CDT us Huber Chaves MD CHEMISTRY ORDERABLES Lori l Result [facility] [phone] [facility] [address] [place] [address] * COMPREHENSIVE METABOLIC PANEL (02/13/2025 8:45 AM CDT) GLUCOSE 91 65 - 99 mg/dL [facility] Comment: Fasting reference interval BUN 25 7 - 25 mg/dL [facility] CREATININE 0.75 0.70 - 1.30 mg/dL [facility] GFR 107 > OR = 60 mL/min/1. 73m2 [facility] BUN/CREAT RATIO SEE NOTE: 6 - 22 (calc) [facility] Comment: Not Reported: BUN and Creatinine are within reference range. SODIUM 137 135 - 146 mmol/L [facility] POTASSIUM 4.3 3.5 - 5.3 mmol/L [facility] CHLORIDE 104 98 - 110 mmol/L [facility] CO2 25 20 - 32 mmol/L [facility] CALCIUM 9.4 8.6 - 10.3 mg/dL [facility] TOTAL PROTEIN 6.6 6.1 - 8.1 g/dL [facility] ALBUMIN 4.4 3.6 - 5.1 g/dL [facility] GLOBULIN 2.2 1.9 - 3.7 g/dL (calc) [facility] ALBUMIN/GLOBULIN RATIO 2.0 1.0 - 2.5 (calc) [facility] BILIRUBIN TOTAL 0.5 0.2 - 1.2 mg/dL [facility] ALKALINE PHOSPHATASE 70 35 - 144 U/L [facility] AST 17 10 - 35 U/L [facility] ALT 16 9 - 46 U/L [facility] Comment: Test Performed at: [facility] [address] [place] [address] Moreno Ludwig MD Blood 02/13/2025 8:45 AM CDT 02/14/2025 2:57 AM CDT Huber Chaves MD CHEMISTRY ORDERABLES Lori l Result [facility] [phone] [facility] [address] [place] [address] * CT SINUS FACIAL BONES WO CONTRAST (01/31/2025 2:52 PM CDT) Anatomical Region Laterality Modality Head Computed Tomogra phy 01/31/2025 2:12 PM CDT Impressions 01/31/2025 3:06 PM CDT IMPRESSION: Please see below. EXAM: CT SINUS FACIAL BONES WO CONTRAST DATE/TIME OF EXAM: 01/31/2025 2:52 PM REASON FOR STUDY: Facial trauma, blunt DIAGNOSIS: See Reason for Exam TECHNIQUE: CT of the sinuses and facial bones was performed without the administration of intravenous contrast. COMPARISON: None FINDINGS: Facial Bones: * Acute, nondisplaced fractures medial and lateral right pterygoid plates * Acute, mildly displaced fracture right zygomatic arch. * Acute, nondisplaced fracture right posterolateral orbital rim. * Acute right ethmoid air cell fracture. * Nasal bone fractures appear chronic. Correlate with palpation. Soft Tissues: Mild soft tissue swelling. Orbits: No intraorbital hematoma. Paranasal Sinuses: Fluid or hemorrhage involving the frontal sinuses and anterior ethmoid air cells. Prominent mucosal thickening of the posterior ethmoid air cells, maxillary sinuses. Bilateral maxillary sinus osteoneogenesis. Rightward nasal septal deviation. Mastoid Air Cells: Clear. Dentition: Edentulous. IMPRESSION: Facial bone fractures, as above. Narrative Procedure Note Nataly Gonzalez MD - 01/31/2025 IMPRESSION: Please see below. EXAM: CT SINUS FACIAL BONES WO CONTRAST DATE/TIME OF EXAM: 01/31/2025 2:52 PM REASON FOR STUDY: Facial trauma, blunt DIAGNOSIS: See Reason for Exam TECHNIQUE: CT of the sinuses and facial bones was performed without the administration of intravenous contrast. COMPARISON: None FINDINGS: Facial Bones: * Acute, nondisplaced fractures medial and lateral right pterygoid plates * Acute, mildly displaced fracture right zygomatic arch. * Acute, nondisplaced fracture right posterolateral orbital rim. * Acute right ethmoid air cell fracture. * Nasal bone fractures appear chronic. Correlate with palpation. Soft Tissues: Mild soft tissue swelling. Orbits: No intraorbital hematoma. Paranasal Sinuses: Fluid or hemorrhage involving the frontal sinuses and anterior ethmoid air cells. Prominent mucosal thickening of the posterior ethmoid air cells, maxillary sinuses. Bilateral maxillary sinus osteoneogenesis. Rightward nasal septal deviation. Mastoid Air Cells: Clear. Dentition: Edentulous. IMPRESSION: Facial bone fractures, as above. Brianna Baron APRN CT ORDERABLES Final R esult from Last 3 Months Insurance [facility] [id number] Advance Directives For more information, please contact: [phone] * Full Code (Latest Code Status on File) Date Activated Date Inactivated Comments 12/28/2021 3:25 AM 12/28/2021 7:37 PM Care Teams Parts Assembler Relationship Specialty Start Date End Date Huber Chaves MD [address] [phone] PCP - General Family Practice 01/02/24
--- OUTSIDE RECORDS SUMMARY | 2025-02-24 21:42 | XMS_ITS | Encounter Summary ---
Author Organization [facility] Address [address] [place] [address] Care Team Providers Care Precision Filer Hand Name Role Phone Huber Chaves MD Primary Care Provider [phone] Reason for Visit * Reason Comments Patient Communication Encounter Details Date Type Department Care Team (Late st Contact Info) Description 02/24/2025 Telephone [facility] [address] [address] Huber Chaves MD [address] [address] Patient Communication Social History Tobacco Use Types Packs/Day Years Used Date Smoking Tobacco: Every Day Cigarettes 0.5 41.6 Started: 07/19/1983 Smokeless Tobacco: Former Chew Alcohol Use Standard Drinks/Week Comments Not Currently 0.8 (1 standard drink = 0.6 oz p ure alcohol) Feeling Safe Answer Date Recorded Are you in a relationship wi th someone who hurts you emotionally and/or physically? 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 Topic: CPA Information Request >> Feb 24, 2025 4:59 PM Lottie Recinos wrote: Caller is returning phone call from clinic. Caller Name: Tushar Becerra Patient/Caregiver Callback Number: [phone] new number Clinic Did Not Leave Note In Chart Call Notes: Patient/Caller returning call, no note documented with instructions from clinic. documented in this encounter Plan of Treatment Not on file documented as of this encounter Visit Diagnoses Not on filedocumented in this encounter Care Teams Precision Filer Hand Relationship Specialty Start Date End Date Huber Chaves MD [address] [address] PCP - General Family Practice 01/02/24 documented as of this encounter
== END 2025-02-24 21:38 | disposition home or self-care (01) ==
LOC: ER 21:41
PROVIDERS: Emergency Provider Emergency Medicine; PCP Registered Nurse
DX: F32.A Depression, unspecified (principal)
CPT/HCPCS: 99283

== ENCOUNTER 2025-03-20 11:18 | Outpatient (CLI) | payer MEDICAID, SELFPAY ==
[2025-03-20 11:54] VITALS: BMI 30.7
--- NOTE | 2025-03-20 11:54 | ECG_ITS ---
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 Baseline heart rate was 86 beats per minute. Baseline blood pressure was 103/73 millimeters of mercury. Target heart rate was 166 beats per minute. Maximum heart rate achieved was 143, which was 86% of the target heart rate. Maximum blood pressure was 187/93 millimeters of mercury. Total exercise time was 8 minutes 21 seconds maximum METs achieved was 10.2, maximum VO2 was 35.7 the reason for ending the test was maximum effort achieved. The patient complained of shortness of breath during the stress test, which then resolved at the end of the test. ELECTROCARDIOGRAM: BASELINE: Showed sinus rhythm, normal axis, no significant ST-T changes at the baseline noted. EXERCISE: At the peak exercise level, No significant ST-T changes suggestive of ischemia noted. RECOVERY: During the recovery period, heart rate dropped appropriately. No significant ST-T changes in the recovery suggestive of ischemia noted. CONCLUSION: 1. Exercise capacity fair 2. Heart rate response was appropriate 3. Blood pressure response was hypertensive 4. Symptoms not suggestive of ischemia. 5. Electrocardiogram portion of the stress test was not suggestive of ischemia. 6. Nuclear scan will be documented separately. Electronically Signed On 04-13-2025 20:51:10 CDT by KINA ASHER [email or web address]
[2025-03-20 12:25] VITALS: BP 132/83; PULSE 84
== END 2025-03-20 11:19 | disposition home or self-care (01) ==
LOC: CDL 11:21
PROVIDERS: PCP Registered Nurse
DX: R07.9 Chest pain, unspecified (principal); R93.1 Abnormal findings on diagnostic imaging of heart and coronary circulation
CPT/HCPCS: 93017

== ENCOUNTER → 2025-06-10 07:42 | Outpatient (BNVA) | payer MEDICAID, SELFPAY | PROVIDERS: PCP Registered Nurse; Visit Provider Orthopaedic Surgery | DX: Z01.818 Encounter for other preprocedural examination (principal); M48.062 Spinal stenosis, lumbar region with neurogenic claudication | CPT/HCPCS: 36415; 72110; 80053; 81001; 85025 ==